=== PATIENT | male | born 1950 | race Caucasian/White ===

== ENCOUNTER 2017-01-17 13:03 | Emergency (ER) | payer OTHER ==
[~2017-01-17] VITALS: Ht 182.9 cm; Wt 91.0 kg
[2017-01-17 13:14] VITALS: BP 118/58; PULSE 65; RESP 16; TEMP 98.4; O2SAT 97
[2017-01-17] MEDS ORDERED: DIOV40TA PO (14:32)
[2017-01-17] MEDS ORDERED: NEUR300C PO (14:32)
[2017-01-17] MEDS ORDERED: ALLO100T PO (14:32)
[2017-01-17] MEDS ORDERED: TYLETAB34 PO (14:32)
[2017-01-17] MEDS ORDERED: CLON1TAB PO (14:32)
[2017-01-17] MEDS ORDERED: PROZ40CA PO (14:32)
[2017-01-17] MEDS ORDERED: GABA300C5 PO (14:32)
[2017-01-17] MEDS ORDERED: LIPI10TA PO (14:32)
[2017-01-17] MEDS ORDERED: FAMO1TAB73 PO (14:32)
[2017-01-17] MEDS ORDERED: TOPR25TA PO (14:32)
[2017-01-17] MEDS ORDERED: PRIL20TA2 PO (14:32)
[2017-01-17] MEDS ORDERED: VITA1000 PO (14:32)
[2017-01-17] MEDS ORDERED: ROPI.5 PO (14:32)
[2017-01-17] MEDS ORDERED: TRAD5TAB PO (14:32)
[2017-01-17] MEDS ORDERED: EMPA1TAB3 PO (14:32)
[2017-01-17] MEDS ORDERED: FENO54TA PO (14:32)
[2017-01-17] MEDS ORDERED: SYNT25TA PO (14:32)
--- NOTE | 2017-01-17 15:17 | PD ---
HPI Chief Complaint: Musculoskeletal Complaint Time Seen by Provider: 14:40 Travel History International Travel<30 days: No Contact w/Intl Traveler<30days: No Traveled to known affect area: No History of Present Illness HPI 66-year-old male presents emergency department for evaluation of left knee pain and swelling 4 days. He reports he may have twisted it while in bed 4 days ago. Patient reports he's had previous episodes of similar symptoms in this left knee over the last 10 years. He reports the pain and swelling have decreased over the last several days with icing and elevating. He denies fever or chills. Patient has history of MCL injury and repair 5 years ago. He reports multiple arthrocentesis in the left knee for nontraumatic knee effusions. He reports the pain is constant, worse with weightbearing and flexion of the knee relieved with rest and elevation. Severity 3/10. PFSH Past Medical History Arthritis: Yes (OSTEO) Coronary Artery Disease: Yes Diverticulitis: Yes Gout: Yes Hypertension: Yes Medical other: Yes (ITP) Sleep Apnea: Yes Influenza Vaccination: Yes Past Surgical History Abdominal Surgery: Yes (RESECTION, HERNIA REPAIR) Coronary Artery Bypass Graft: Yes (2013) Social History Alcohol Use: Yes (SOCIAL) Tobacco Use: No Substance Use: No Allergies-Medications (Allergen,Severity, Reaction): Coded Allergies: No Known Allergies (Verified Allergy, Unknown, 01/17/17) Reported Meds & Prescriptions Reported Meds & Active Scripts Active Reported Tylenol-Codeine #3 (Acetaminophen-Codeine) 300-30 mg Tab 1 Tab PO Q4H PRN Fenofibrate 54 Mg Tab 54 Mg PO HS Lipitor (Atorvastatin Calcium) 10 Mg Tab 10 Mg PO HS Allopurinol 100 Mg Tab 100 Mg PO 3XPER WEEK Clonazepam 1 Mg Tab 1 Mg PO HS Requip (Ropinirole HCl) 0.5 Mg Tab 0.5 Mg PO HS Prozac (Fluoxetine HCl) 40 Mg Cap 40 Mg PO HS Pepcid (Famotidine) 40 Mg Tab 40 Mg PO HS Gabapentin 300 Mg Cap 900 Mg PO HS Neurontin (Gabapentin) 300 Mg Cap 300 Mg PO HS Toprol XL (Metoprolol Succinate) 25 Mg Tab 12.5 Mg PO HS Prilosec (Omeprazole Magnesium) 20 Mg Tab 1 Tab PO DAILY Vitamin D-1000 (Cholecalciferol) 1,000 Unit Tab 2,000 Units PO DAILY Diovan (Valsartan) 40 Mg Tab 20 Mg PO DAILY Synthroid (Levothyroxine Sodium) 25 Mcg Tab 25 Mcg PO DAILY Jardiance (Empagliflozin) 25 Mg Tab 25 Mg PO DAILY Tradjenta (Linagliptin) 5 Mg Tab 5 Mg PO DAILY Review of Systems Except as stated in HPI: all other systems reviewed are Neg General / Constitutional: No: Fever Physical Exam Narrative GENERAL: Well-nourished, well-developed patient. SKIN: Focused skin assessment warm/dry. HEAD: Normocephalic. EYES: No scleral icterus. No injection or drainage. NECK: Supple, trachea midline. No JVD or lymphadenopathy. CARDIOVASCULAR: Regular rate and rhythm without murmurs, gallops, or rubs. RESPIRATORY: Breath sounds equal bilaterally. No accessory muscle use. GASTROINTESTINAL: Abdomen soft, non-tender, nondistended. MUSCULOSKELETAL: No cyanosis, or edema. Left lower extremity: The knee is stable. Limited exam due to pain. Joint effusion present. No warmth or erythema over the joint. No calf pain or swelling. Pain is limited to the anterior aspect of the knee no posterior pain tenderness. 2+ distal pulses. Normal sensation within the extremity. BACK: Nontender without obvious deformity. No CVA tenderness. Data Data Last Documented VS Vital Signs Date Time Temp Pulse Resp B/P (MAP) Pulse Ox O2 Delivery O2 Flow Rate FiO2 01/17/17 13:14 98.4 65 16 118/58 (78) 97 Orders Orders Knee, Complete (4vws) (01/17/17 ) Splint Or Brace Apply/Monitor (01/17/17 15:18) Crutches (01/17/17 15:18) Ketorolac Inj (Toradol Inj) (01/17/17 15:30) MDM Medical Decision Making Medical Screen Exam Complete: Yes Emergency Medical Condition: Yes Differential Diagnosis Left knee strain versus sprain versus fracture versus septic arthritis versus arthritis Narrative Course 66-year-old male with left knee pain and swelling 4 days. Patient has history of arthritis, MCL injury and repair within the left knee. He reports multiple episodes of joint effusions in the past. He reports the pain and swelling has reduced by about half with icing and elevating over the last 4 days. He presents the emergency department hoping to get a knee immobilizer which he left at home. On exam the patient has moderate sized joint effusion. There is no warmth or erythema of the joint. Patient is afebrile and nontoxic appearing. I do not suspect septic arthritis. Patient reports his joint effusions have responded well to steroids in the past. He reports he has mild renal insufficiency and was instructed to avoid long-term NSAID use X-ray of the left knee negative for acute fracture Patient was put in a knee immobilizer and crutches. Patient was given a shot of Toradol and discharged home with a short dose of steroids. She was instructed to follow-up with his orthopedic doctor. He verbalizes understanding and agrees to plan Diagnosis Primary Impression: Left knee pain Qualified Codes: M25.562 - Pain in left knee Referrals: Orthopedist Additional Instructions: Take the medication as prescribed. Take her pain medicines as needed for pain. Ice and elevate the extremity. Within the brace for support. Make an appointment with her orthopedic doctor for follow-up Scripts Prednisone (Prednisone) 20 Mg Tab 40 MG PO DAILY, #10 TAB 0 Refills Take 40 mg (2 tablets) daily for 5 days Prov: Jayla King 01/17/17 Disposition: DISCHARGE HOME Condition: Stable Jayla King Jan 17, 2017 15:17
[2017-01-17] MEDS ORDERED: KETOROLAC TROMETHAMINE 60 MG/2 ML (IM) VIAL IM ONE (15:30)
[2017-01-17] MEDS ORDERED: PRED20 PO (15:31)
--- NOTE | 2017-01-17 15:56 | RADRPT ---
EXAM DATE/TIME: 01/17/2017 00:00 [facility] COMPARISON: No previous studies available for comparison. INDICATIONS : Left knee pain. MEDICAL HISTORY : None. SURGICAL HISTORY : Left knee surgery. ENCOUNTER: Initial ACUITY: 1 day PAIN SCORE: 3/10 LOCATION: Left knee. FINDINGS: Multiple views of the knee show joint space narrowing with periarticular sclerotic change and osteoph yte production. This is most pronounced within the medial compartment. No fracture or dislocation. Sm all effusion. Soft tissues are unremarkable. Calcified atherosclerotic plaque. CONCLUSION: Advanced osteoarthritis. Small joint effusion. Andrew Randolph Jr., MD on January 17, 2017 at 15:53 Board Certified Radiologist. This report was verified electronically.
== END 2017-01-17 15:59 | disposition home or self-care (01) ==
LOC: PHED 13:03 → PHEFT 15:59
DX: M25.562 Pain in left knee (principal)
CPT/HCPCS: 73564; 96372; 99284; E0113; J1885; L1830